=== PATIENT | male | born 1935 | race Asian ===

== ENCOUNTER 2016-10-31 09:20 | Outpatient (CLI) | payer MEDICARE, OTHER | END 2016-10-31 09:21 | disposition home or self-care (01) | DX: E11.9 Type 2 diabetes mellitus without complications (principal); R01.1 Cardiac murmur, unspecified; N18.9 Chronic kidney disease, unspecified; I12.9 Hypertensive chronic kidney disease with stage 1 through stage 4 chronic kidney disease, or unspecified chronic kidney disease ==

== ENCOUNTER 2016-11-04 12:09 | Outpatient (CLI) | payer MEDICARE, OTHER | END 2016-11-04 12:10 | disposition home or self-care (01) | DX: R01.1 Cardiac murmur, unspecified (principal) ==

== ENCOUNTER 2017-02-08 09:20 | Outpatient (CLI) | payer MEDICARE, OTHER ==
[2017-02-08 14:33] LABS: HEMOGLOBIN A1C 0.56 g/dL
[2017-02-08 14:36] LABS: ALBUMIN/GLOBULIN RATIO 1.2 (1.0-2.2); BILIRUBIN,TOTAL 0.5 mg/dL (0.2-1.0); BUN - BLOOD UREA NITROGEN 25 mg/dL (6-20); CALCIUM 8.9 mg/dL (8.5-10.3); CARBON DIOXIDE - CO2 25 mmol/L (21-32); CHLORIDE 102 mmol/L (101-111); CHOL/HDL RATIO 2.4 (<5.0); CHOLESTEROL 240 mg/dL; CREATININE 1.4 mg/dL (0.6-1.2); GFR - MDRD 49 (>89); GLUCOSE 110 mg/dL (70-100); HDL CHOLESTEROL 100 mg/dL; LDL/HDL RATIO 1.2 (<3.6); POTASSIUM 4.4 mmol/L (3.5-5.0); SODIUM 137 mmol/L (135-145); TRIGLYCERIDES 94 mg/dL; VLDL CHOLESTEROL 19 mg/dL
[2017-02-19 11:16] LABS: MISC SENDOUT TEST NAME LAB678 DRUG & ALCOHO
[2017-02-19 11:17] LABS: MISC TEST RESULT SEE SEPARATE REPORT
== END 2017-02-08 09:21 | disposition home or self-care (01) ==
LOC: LAB.WCP 09:20
PROVIDERS: ATTEND Family Medicine
DX: I12.9 Hypertensive chronic kidney disease with stage 1 through stage 4 chronic kidney disease, or unspecified chronic kidney disease (principal); N18.9 Chronic kidney disease, unspecified; E11.9 Type 2 diabetes mellitus without complications; E78.5 Hyperlipidemia, unspecified; F10.20 Alcohol dependence, uncomplicated; D64.9 Anemia, unspecified
CPT/HCPCS: 36415; 80053; 80061; 80307; 81599; 82607; 83036

== ENCOUNTER 2017-10-01 08:15 | Outpatient (CLI) | payer MEDICARE, OTHER ==
[2017-10-01 13:02] LABS: ALBUMIN/GLOBULIN RATIO 1.2 (1.0-2.2); BILIRUBIN,TOTAL 0.4 mg/dL (0.2-1.0); BUN - BLOOD UREA NITROGEN 30 mg/dL (6-20); CALCIUM 8.9 mg/dL (8.5-10.3); CARBON DIOXIDE - CO2 23 mmol/L (21-32); CHLORIDE 103 mmol/L (101-111); CHOL/HDL RATIO 3.2 (<5.0); CHOLESTEROL 248 mg/dL; CREATININE 1.8 mg/dL (0.6-1.2); GFR - MDRD 36 (>89); GLUCOSE 96 mg/dL (70-100); HDL CHOLESTEROL 77 mg/dL; LDL/HDL RATIO 1.7 (<3.6); POTASSIUM 4.4 mmol/L (3.5-5.0); SODIUM 135 mmol/L (135-145); TRIGLYCERIDES 215 mg/dL; VLDL CHOLESTEROL 43 mg/dL
[2017-10-01 13:09] LABS: HEMOGLOBIN A1C 0.52 g/dL
== END 2017-10-01 08:16 | disposition home or self-care (01) ==
LOC: LAB.WCP 08:15
PROVIDERS: ATTEND Family Medicine
DX: E11.9 Type 2 diabetes mellitus without complications (principal); C61 Malignant neoplasm of prostate; E78.5 Hyperlipidemia, unspecified; I10 Essential (primary) hypertension; F10.20 Alcohol dependence, uncomplicated; N18.9 Chronic kidney disease, unspecified
CPT/HCPCS: 36415; 80053; 80061; 83036; 84153

== ENCOUNTER 2017-11-02 08:00 | Outpatient (CLI) | payer MEDICARE, OTHER ==
[2017-11-02 12:57] LABS: CALCIUM 8.8 mg/dL (8.5-10.3); CREATININE 1.5 mg/dL (0.6-1.2)
== END 2017-11-02 08:01 | disposition home or self-care (01) ==
LOC: LAB.WCP 08:00
PROVIDERS: ATTEND Family Medicine
DX: E11.9 Type 2 diabetes mellitus without complications (principal); N18.9 Chronic kidney disease, unspecified; E78.5 Hyperlipidemia, unspecified; I12.9 Hypertensive chronic kidney disease with stage 1 through stage 4 chronic kidney disease, or unspecified chronic kidney disease
CPT/HCPCS: 36415; 80048

== ENCOUNTER 2018-01-01 09:20 | Outpatient (CLI) | payer MEDICARE, OTHER ==
[2018-01-01 12:55] LABS: CALCIUM 9.6 mg/dL (8.5-10.3); CREATININE 1.8 mg/dL (0.6-1.2); URIC ACID 5.6 mg/dL (2.6-7.2)
[2018-01-01 13:01] LABS: HEMOGLOBIN A1C 0.53 g/dL; HEMOGLOBIN A1C % 5.6 % (4.6-6.2)
== END 2018-01-01 09:21 | disposition home or self-care (01) ==
LOC: LAB.WCP 09:20
PROVIDERS: ATTEND Family Medicine
DX: E11.22 Type 2 diabetes mellitus with diabetic chronic kidney disease (principal); I12.9 Hypertensive chronic kidney disease with stage 1 through stage 4 chronic kidney disease, or unspecified chronic kidney disease; N18.9 Chronic kidney disease, unspecified; M10.9 Gout, unspecified
CPT/HCPCS: 36415; 80048; 83036; 84550

== ENCOUNTER 2018-04-03 08:00 | Outpatient (CLI) | payer MEDICARE, OTHER ==
[2018-04-03 12:33] LABS: BASOPHILS # (AUTO) 0.1 10^3/uL (0.0-0.1); EOSINOPHILS % (AUTO) 14.7 %; HGB - HEMOGLOBIN 12.5 g/dL (14.0-18.0); LYMPHOCYTES % (AUTO) 30.8 %; MEAN CORPUSCULAR HEMOGLOBIN 35.3 pg (27.0-31.0); MEAN CORPUSCULAR VOLUME 103.9 fL (80.0-94.0); MEAN PLATELET VOLUME 8.3 fL (7.4-11.4); MONOCYTES # (AUTO) 0.5 10^3/uL (0.0-1.0); MONOCYTES % (AUTO) 7.5 %; PLT - PLATELET COUNT 240 10^3/uL (130-450); RED BLOOD COUNT 3.55 10^6/uL (4.70-6.10); WHITE BLOOD COUNT 6.5 x10^3/uL (4.8-10.8)
[2018-04-03 12:50] LABS: ALBUMIN/GLOBULIN RATIO 1.2 (1.0-2.2); ALKALINE PHOSPHATASE 64 IU/L (42-121); ALT ALANINE AMINOTRANSFERASE 12 IU/L (10-60); AST ASPARTATE AMINOTRANSFERASE 22 IU/L (10-42); BILIRUBIN,TOTAL 0.6 mg/dL (0.2-1.0); BUN - BLOOD UREA NITROGEN 42 mg/dL (6-20); CALCIUM 8.8 mg/dL (8.5-10.3); CARBON DIOXIDE - CO2 25 mmol/L (21-32); CHLORIDE 104 mmol/L (101-111); CHOL/HDL RATIO 2.6 (<5.0); CHOLESTEROL 225 mg/dL; CREATININE 1.8 mg/dL (0.6-1.2); GFR - MDRD 36 (>89); GLUCOSE 93 mg/dL (70-100); HDL CHOLESTEROL 88 mg/dL; LDL CHOLESTEROL,CALCULATED 112 mg/dL; LDL/HDL RATIO 1.3 (<3.6); SODIUM 136 mmol/L (135-145); TOTAL PROTEIN 7.3 g/dL (6.7-8.2); VLDL CHOLESTEROL 25 mg/dL
[2018-04-03 12:53] LABS: HB2 TOTAL 13.7 g/dL; HEMOGLOBIN A1C 0.5 g/dL; HEMOGLOBIN A1C % 5.5 % (4.6-6.2)
[2018-04-03 13:12] LABS: DIFFERENTIAL COMMENT MANUAL=AUTO DIFF
[2018-04-03 13:14] LABS: PLATELET ESTIMATE, MANUAL NORMAL (130-450,000) (NORMAL); RBC MORPHOLOGY (MULTIPLE) NORMAL APPEARANCE (NORMAL)
== END 2018-04-03 08:01 | disposition home or self-care (01) ==
LOC: LAB.WCP 08:00
PROVIDERS: ATTEND Family Medicine
DX: D64.9 Anemia, unspecified (principal); E11.9 Type 2 diabetes mellitus without complications; N18.9 Chronic kidney disease, unspecified; E78.5 Hyperlipidemia, unspecified; I12.9 Hypertensive chronic kidney disease with stage 1 through stage 4 chronic kidney disease, or unspecified chronic kidney disease
CPT/HCPCS: 36415; 80053; 80061; 82043; 83036; 83721; 85025

== ENCOUNTER 2018-12-02 08:28 | Outpatient (CLI) | payer MEDICARE, OTHER ==
[2018-12-02 12:17] LABS: BASOPHILS # (AUTO) 0.1 10^3/uL (0.0-0.1); BASOPHILS % (AUTO) 1.1 %; EOSINOPHILS # (AUTO) 0.8 10^3/uL (0.0-0.7); EOSINOPHILS % (AUTO) 13.3 %; HGB - HEMOGLOBIN 12.5 g/dL (14.0-18.0); LYMPHOCYTES # (AUTO) 1.9 10^3/uL (1.5-3.5); MEAN CORPUSCULAR HEMOGLOBIN 34.3 pg (27.0-31.0); MEAN CORPUSCULAR HGB CONC 34.3 g/dL (32.0-36.0); MEAN CORPUSCULAR VOLUME 100.2 fL (80.0-94.0); MEAN PLATELET VOLUME 8.2 fL (7.4-11.4); MONOCYTES # (AUTO) 0.5 10^3/uL (0.0-1.0); MONOCYTES % (AUTO) 8.1 %; NEUTROPHILS # (AUTO) 2.7 10^3/uL (1.5-6.6); NEUTROPHILS % (AUTO) 45.5 %; PLT - PLATELET COUNT 279 10^3/uL (130-450); RED BLOOD COUNT 3.65 10^6/uL (4.70-6.10); RED CELL DISTRIBUTION WIDTH 14.3 % (12.0-15.0); WHITE BLOOD COUNT 5.9 x10^3/uL (4.8-10.8)
[2018-12-02 13:08] LABS: ALBUMIN 4.1 g/dL (3.2-5.5); ALBUMIN/GLOBULIN RATIO 1.2 (1.0-2.2); ALKALINE PHOSPHATASE 57 IU/L (42-121); ALT ALANINE AMINOTRANSFERASE 14 IU/L (10-60); AST ASPARTATE AMINOTRANSFERASE 24 IU/L (10-42); BILIRUBIN,TOTAL 0.7 mg/dL (0.2-1.0); BUN - BLOOD UREA NITROGEN 26 mg/dL (6-20); CALCIUM 9.2 mg/dL (8.5-10.3); CARBON DIOXIDE - CO2 25 mmol/L (21-32); CHLORIDE 103 mmol/L (101-111); CHOL/HDL RATIO 2.3 (<5.0); CHOLESTEROL 265 mg/dL; CREATININE 1.4 mg/dL (0.6-1.2); GFR - MDRD 49 (>89); GLUCOSE 114 mg/dL (70-100); HDL CHOLESTEROL 114 mg/dL; LDL CHOLESTEROL,CALCULATED 125 mg/dL; LDL/HDL RATIO 1.1 (<3.6); SODIUM 137 mmol/L (135-145); TOTAL PROTEIN 7.5 g/dL (6.7-8.2); URIC ACID 7.5 mg/dL (2.6-7.2); VLDL CHOLESTEROL 26 mg/dL
[2018-12-02 13:21] LABS: HB2 TOTAL 13.3 g/dL; HEMOGLOBIN A1C 0.48 g/dL; HEMOGLOBIN A1C % 5.5 % (4.6-6.2)
== END 2018-12-02 08:29 | disposition home or self-care (01) ==
LOC: LAB.WCP 08:28
PROVIDERS: ATTEND Family Medicine
DX: D64.9 Anemia, unspecified (principal); E11.9 Type 2 diabetes mellitus without complications; N18.9 Chronic kidney disease, unspecified; E78.5 Hyperlipidemia, unspecified; I12.9 Hypertensive chronic kidney disease with stage 1 through stage 4 chronic kidney disease, or unspecified chronic kidney disease
CPT/HCPCS: 36415; 80053; 80061; 83036; 83721; 84550; 85025

== ENCOUNTER 2019-07-29 08:00 | Outpatient (CLI) | payer MEDICARE, OTHER ==
[2019-07-29 13:15] LABS: BASOPHILS # (AUTO) 0.1 10^3/uL (0.0-0.1); BASOPHILS % (AUTO) 1.4 %; EOSINOPHILS # (AUTO) 1.2 10^3/uL (0.0-0.7); EOSINOPHILS % (AUTO) 17.3 %; HGB - HEMOGLOBIN 12.9 g/dL (14.0-18.0); LYMPHOCYTES # (AUTO) 2.9 10^3/uL (1.5-3.5); LYMPHOCYTES % (AUTO) 40.4 %; MEAN CORPUSCULAR HEMOGLOBIN 33.9 pg (27.0-31.0); MEAN CORPUSCULAR VOLUME 102.9 fL (80.0-94.0); MONOCYTES # (AUTO) 0.5 10^3/uL (0.0-1.0); MONOCYTES % (AUTO) 7.1 %; NEUTROPHILS # (AUTO) 2.4 10^3/uL (1.5-6.6); NEUTROPHILS % (AUTO) 33.5 %; PLT - PLATELET COUNT 268 10^3/uL (130-450); RED CELL DISTRIBUTION WIDTH 12.9 % (12.0-15.0); WHITE BLOOD COUNT 7.2 x10^3/uL (4.8-10.8)
[2019-07-29 13:29] LABS: ALBUMIN 4.2 g/dL (3.2-5.5); ALBUMIN/GLOBULIN RATIO 1.1 (1.0-2.2); CALCIUM 9.1 mg/dL (8.5-10.3); CREATININE 1.5 mg/dL (0.6-1.2); TOTAL PROTEIN 7.9 g/dL (6.7-8.2)
[2019-07-29 13:58] LABS: CHOL/HDL RATIO 2.8 (<5.0); CHOLESTEROL 256 mg/dL; HDL CHOLESTEROL 90 mg/dL; LDL CHOLESTEROL,CALCULATED 102 mg/dL; LDL/HDL RATIO 1.1 (<3.6); VLDL CHOLESTEROL 64 mg/dL
[2019-07-29 13:59] LABS: PLATELET ESTIMATE, MANUAL NORMAL (130-450,000) (NORMAL); PLATELET MORPHOLOGY NORMAL APPEARANCE (NORMAL); RBC MORPHOLOGY (MULTIPLE) NORMAL APPEARANCE (NORMAL)
[2019-07-29 14:11] LABS: HB2 TOTAL 13.4 g/dL; HEMOGLOBIN A1C 0.53 g/dL; HEMOGLOBIN A1C % 5.8 % (4.6-6.2)
== END 2019-07-29 23:59 | disposition home or self-care (01) ==
LOC: LAB.WCP 08:00
PROVIDERS: ATTEND Family Medicine
DX: E11.9 Type 2 diabetes mellitus without complications (principal); E78.5 Hyperlipidemia, unspecified; I10 Essential (primary) hypertension; F17.210 Nicotine dependence, cigarettes, uncomplicated; D64.9 Anemia, unspecified; R94.5 Abnormal results of liver function studies; I65.23 Occlusion and stenosis of bilateral carotid arteries; M10.9 Gout, unspecified
CPT/HCPCS: 36415; 80053; 80061; 83036; 83721; 84443; 84550; 85025

== ENCOUNTER 2019-07-30 08:00 | Outpatient (CLI) | payer MEDICARE, OTHER | END 2019-07-30 23:59 | disposition home or self-care (01) | LOC: LAB.R 08:00 | PROVIDERS: ATTEND Physician Assistant | DX: M10.9 Gout, unspecified (principal) | CPT/HCPCS: 84550 ==

== ENCOUNTER 2019-08-14 08:35 | Outpatient (CLI) | payer MEDICARE, OTHER | END 2019-08-14 08:36 | disposition home or self-care (01) | LOC: DI 08:35 | PROVIDERS: ATTEND Physician Assistant | DX: I35.1 Nonrheumatic aortic (valve) insufficiency (principal); I51.9 Heart disease, unspecified | CPT/HCPCS: 93306 ==

== ENCOUNTER 2019-08-26 07:46 | Outpatient (CLI) | payer MEDICARE, OTHER ==
--- NOTE | 2019-08-26 11:15 | CT Report ---
Reason: SMOKER Procedure Date: 08/26/2019 Accession Number: [id number] / [id number] Procedure: CT - CHEST WO CPT Code: Final Report FULL RESULT: EXAM: CT CHEST EXAM DATE: 08/26/2019 08:02 AM. CLINICAL HISTORY: Smoker. COMPARISONS: None. TECHNIQUE: Routine helical CT imaging was performed through the chest. IV contrast: None. Reconstructions: Coronal and sagittal. In accordance with CT protocol optimization, one or more of the following dose reduction techniques were utilized for this exam: automated exposure control, adjustment of mA and/or KV based on patient size, or use of iterative reconstructive technique. FINDINGS: Lungs/Pleura: Nodules: In the right upper lobe, there is at least 20, sub-4 mm mixed semisolid and nonsolid pulmonary nodules, and at least 10 similar morphology nodules in the left upper lobe largely sparing the lingula. No dominant solid pulmonary nodule noted. Bilateral lower lobes are clear. Mild cylindrical bronchiectasis. Mild paraseptal emphysema of the apices. No confluent airspace opacity or bronchial thickening. Several bandlike foci of extra pleural thickening right anterior pleura. Pulmonary vasculature is normal. No pericardial or pleural effusion. No pneumothorax. Mediastinum: No adenopathy or masses. The heart size is normal. Atherosclerotic ectasia and tortuosity of the thoracic aorta. Significant coronary artery calcium of left coronary branches. Bones: Unremarkable. Visualized Abdomen: Unremarkable. Other: None. IMPRESSION: 1. Multiple bilateral similar-appearing sub-4 mm pulmonary nodules as detailed involving the upper lobes. Lung RADS category 2. Benign appearance. Recommend low dose screening CT in 12 months. RADIA
== END 2019-08-26 07:47 | disposition home or self-care (01) ==
LOC: DI 07:46
PROVIDERS: ATTEND Physician Assistant
DX: R91.8 Other nonspecific abnormal finding of lung field (principal); F17.210 Nicotine dependence, cigarettes, uncomplicated
CPT/HCPCS: 71250

== ENCOUNTER → 2020-03-29 | Outpatient (CLI) | payer MEDICARE, OTHER ==
[2020-03-29 12:31] LABS: BASOPHILS # (AUTO) 0.1 10^3/uL (0.0-0.1); BASOPHILS % (AUTO) 1.4 %; EOSINOPHILS # (AUTO) 1.1 10^3/uL (0.0-0.7); EOSINOPHILS % (AUTO) 19.8 %; HGB - HEMOGLOBIN 11.8 g/dL (14.0-18.0); MEAN CORPUSCULAR HEMOGLOBIN 31.9 pg (27.0-31.0); MEAN CORPUSCULAR HGB CONC 31.6 g/dL (32.0-36.0); MEAN CORPUSCULAR VOLUME 101.1 fL (80.0-94.0); MEAN PLATELET VOLUME 9.8 fL (7.4-11.4); MONOCYTES # (AUTO) 0.5 10^3/uL (0.0-1.0); MONOCYTES % (AUTO) 8.7 %; NEUTROPHILS # (AUTO) 1.9 10^3/uL (1.5-6.6); NEUTROPHILS % (AUTO) 33.9 %; PLT - PLATELET COUNT 296 10^3/uL (130-450); RED CELL DISTRIBUTION WIDTH 13.5 % (12.0-15.0); WHITE BLOOD COUNT 5.6 x10^3/uL (4.8-10.8)
[2020-03-29 13:02] LABS: ALBUMIN 4.3 g/dL (3.2-5.5); ALBUMIN/GLOBULIN RATIO 1.3 (1.0-2.2); ALKALINE PHOSPHATASE 81 IU/L (42-121); ALT ALANINE AMINOTRANSFERASE 12 IU/L (10-60); AST ASPARTATE AMINOTRANSFERASE 17 IU/L (10-42); BILIRUBIN,TOTAL 0.6 mg/dL (0.2-1.0); BUN - BLOOD UREA NITROGEN 25 mg/dL (6-20); CARBON DIOXIDE - CO2 26 mmol/L (21-32); CHLORIDE 108 mmol/L (101-111); CHOLESTEROL 245 mg/dL; CREATININE 1.5 mg/dL (0.6-1.2); GLUCOSE 94 mg/dL (70-100); HDL CHOLESTEROL 68 mg/dL; LDL CHOLESTEROL,CALCULATED 147 mg/dL; SODIUM 140 mmol/L (135-145); TOTAL PROTEIN 7.5 g/dL (6.7-8.2); URIC ACID 7.8 mg/dL (2.6-7.2); VLDL CHOLESTEROL 30 mg/dL
[2020-03-29 13:03] LABS: CHOL/HDL RATIO 3.6 (<5.0); LDL/HDL RATIO 2.2 (<3.6)
[2020-03-29 13:12] LABS: CREATININE,URINE 91.3 mg/dL; HB2 TOTAL 12.5 g/dL; HEMOGLOBIN A1C 0.52 g/dL; MICROALBUMIN,URINE 11.5 mg/dL (0-300.0)
== END ==
LOC: LAB.WCP 09:26
PROVIDERS: ATTEND Family Medicine
DX: E11.9 Type 2 diabetes mellitus without complications (principal); C61 Malignant neoplasm of prostate; I35.1 Nonrheumatic aortic (valve) insufficiency; I65.29 Occlusion and stenosis of unspecified carotid artery; F17.210 Nicotine dependence, cigarettes, uncomplicated
CPT/HCPCS: 36415; 80053; 80061; 82043; 82570; 83036; 83721; 84153; 84443; 84550; 85025

== ENCOUNTER 2020-05-06 08:11 | Outpatient (CLI) | payer MEDICARE, OTHER ==
--- NOTE | 2020-05-06 09:16 | SLEEP CARE CONSULTATION ---
Information from patient questionnaire entered by Mary Arana. I have reviewed and concur with the information entered by Mary Arana. This document represents the service I personally performed and the decisions made by me, Candy Snow ARNP. History of Present Illness Service Date and Time: 05/06/2020 0811 Reason for Visit: New patient Chief Complaint: reports: Insomnia, Snoring, Excessive daytime sleepiness, Fatigue, Frequent awakenings at night. denies: Observed pauses in breathing Duration of Symptoms: 20 years Usual bedtime: 2300 Time it takes to fall asleep: 1 hour Snores at night: Yes Observed to quit breathing while asleep: No Sleeps alone due to snoring: Yes Number of times waking at night: 2 Reasons for waking at night: reports: Bathroom. denies: Choking, Snoring, Gasping for air, Pain Toss, Turn, or Twitch while sleeping: Yes Recalls having dreams: Yes Usually gets out of bed at: 0500 Feels refreshed in the morning: Yes (most mornings) Morning headache: No Sleepy or fatigued during the day: Yes Ever fallen asleep while driving: No Takes day naps: Yes Dreams during day naps: No Prior sleep studies: No Additional HPI information: Patient's and son complaining about his loud snoring. He was sent here by PCP due to his insomnia, snoring, frequent awakenings and not being able to sleep during the night. - Parasomnia Symptoms Ever been unable to move upon waking from sleep: No Walks in sleep: No Talks in sleep: Yes ( tells him he does this occasionally) Ever acted out dreams in sleep: Yes Ever felt weak in the knees when startled or emotional: No Bothered by creepy, crawly, restless sensations in legs: Yes Problems with memory or concentration: No Subjective Initial [place] Sleepiness Scale score: 16 Past Medical History Past Medical History: reports: Hypertension, Diabetes (borderline), Impotence. denies: Claustrophobia, Congestive Heart Failure, Stroke, Coronary Heart Disease, Arrythmia, Hypothyroidism, Anemia, Anxiety, Asthma, Depression, Mood disorder, GERD Social History The patient's occupation is retired. Patient is and lives in [place]. Have you smoked in the past 12 months: No Cigarettes per day (20/pack): 20 Years of smokin Quit date: 1966 Smoking Pack Years: 60.0 Alcohol use: Yes Alcohol amount and frequency: occasionally Caffeine use: Yes Caffeine amount and frequency: black coffee every morning, 2-3 cups Family History Family history of sleep disordered breathing: Yes Family Hx Sleep Apnea: Mother: Snoring (brothers), Father: Snoring, Sibling: Snoring Allergies and Home Medications Drug allergies reviewed: Yes (codiene, heart racing) Allergy and home medication list: allopurinol colcrys metoprolol tartrate tylenol aspirin latanoprostophthalmic solution simvastatin lisinopril Review of Systems Cardiovascular: reports: high blood pressure. denies: palpitations, chest pain, irregular heart rate or pulse, leg or foot swelling, have to sleep sitting up Respiratory: denies: shortness of breath, wheeze, chronic cough Gastrointestinal: denies: heartburn, difficulty swallowing Urinary: reports: impotence Neurological: denies: headaches, seizure, head trauma, disorientation, gait or balance problems Psychiatric: denies: anxiety, depression, mood disorder Ear/Nose/Throat: reports: wisdom teeth removed. denies: nasal congestion, sinus problems, nose bleeds, dry mouth/throat, injury to nose, tonsillectomy Endocrine: reports: increased urination. denies: thyroid disease, too hot or cold, excessive thirst, increased appetite Musculoskeletal: reports: joint pain, neck pain, back pain, muscle pain or cramping Immunologic: reports: itching, allergies to food or environment (seasonal dry skin) Physical Exam Blood Pressure: 158/88 Cuff size: long Heart Rate: 86 O2 Saturation: 97 Height: 5 ft 4 in Weight: 147 lb 6.4 oz Body Mass Index: 25.2 BMI Classification: Overweight Neck circumference: 14.5 (inches) HEENT: No craniofacial malformation Nostrils: patent to airflow Turbinates: normal Septum: midline Mouth and throat: normal Soft palate: normal Hard palate: normal Uvula: normal Uvula visualization: 50% Mallampati Class II Tongue: normal in size Tonsils: small Chin and jaw: normal size and position Neck: normal w/o lymphadenopathy or thyromegaly Heart: regular rate and rhythm, murmur Lungs: clear bilaterally Impression and Plan 1. Suspected Obstructive Sleep Apnea-Hypopnea Syndrome, as suggested by a history of loud and irregular snoring, insomnia, frequent awakening during the night, and excessive daytime sleepiness. As discussed with the patient, a narrow oropharynx and obesity are common predisposing factors for obstructive sleep apnea-hypopnea syndrome. Patient does have a history of hypertension and borderline diabetes. He is overweight with a BMI of 25.2. He states he feels like he gets restful sleep but then falls asleep often during the day if he is not busy, like when watching TV. His PCP recommended he be evaluated for sleep apnea to determine cause of his symptoms as listed above. 2. Elevated blood pressure reading with a diagnosis of hypertension. His blood pressure was elevated today at 158/88 but he stated that he had not yet taken his blood pressure medications this morning. I recommend proceeding to polysomnography to confirm the diagnosis and to assess severity. I informed the patient of what the sleep studies involve and after some discussion, obtained agreement to proceed. The pathophysiology of obstructive sleep apnea-hypopnea syndrome was discussed with the patient and health risks of cardiovascular and cerebrovascular disease if not treated. AAS brochure for obstructive sleep apnea-hypopnea syndrome given and reviewed. Risks of drowsy driving discussed in detail and patient advised to avoid long distance driving and to [employer] at the first sign of drowsiness. Patient states he is usually alert and not sleepy when driving. Patient agreed to plan. * Schedule polysomnography and return in 1-2 weeks after the study to discuss result and initiate therapy. * Avoid long distance driving or driving when feeling sleepy. * Avoid alcohol, sedative and muscle relaxant around bedtime. * Attempt to lose weight. * Review instructions provided by trained office staff on how to prepare for the sleep study. * Return for follow-up after sleep study completed. Visit Type: In Office Time Spent with Patient (minutes): 35 Provider Statement: I spent 100% of the Face to Face Visit with the patient with greater than 50% spent counseling the patient and coordination of care.
[2020-05-06 09:18] VITALS: BP 158/88
== END 2020-05-06 08:12 | disposition home or self-care (01) ==
LOC: SC 08:11
PROVIDERS: ATTEND Nurse Practitioner Family
DX: G47.10 Hypersomnia, unspecified (principal); G47.8 Other sleep disorders; R06.83 Snoring; G47.00 Insomnia, unspecified; I01.0 Acute rheumatic pericarditis; E66.3 Overweight; Z68.25 Body mass index [BMI] 25.0-25.9, adult
CPT/HCPCS: 99204; G0463; 99212

== ENCOUNTER 2020-05-26 20:26 | Outpatient (CLI) | payer MEDICARE, OTHER | END 2020-05-26 20:27 | disposition home or self-care (01) | LOC: SC 20:26 | PROVIDERS: ATTEND Internal Medicine Pulmonary Disease | DX: G47.33 Obstructive sleep apnea (adult) (pediatric) (principal); G47.63 Sleep related bruxism | CPT/HCPCS: 95810 ==

== ENCOUNTER 2020-06-03 08:32 | Outpatient (CLI) | payer MEDICARE, OTHER ==
--- NOTE | 2020-06-03 09:16 | SLEEP CARE CONSULTATION ---
Information from patient questionnaire entered by Marianela Anthony. I have reviewed and concur with the information entered by Marianela Anthony. This document represents the service I personally performed and the decisions made by , Candy Snow ARNP. History of Present Illness Service Date and Time: 06/03/2020 0832 Initial [place] Sleepiness Scale score: 16 (in 2020) Current [place] Sleepiness Scale score: 18 Additional HPI information: TYLER LOWRY returns for follow up and results of the recently performed polysomnography. Patient was found to have severe obstructive sleep apnea with a elsa oxygen saturation of 81% and some bruxism noted during study. I explained the pathophysiology behind obstructive sleep apnea. We then spent quite a bit of time discussing different treatment options. For mild obstructive sleep apnea, surgery and oral appliance are alternatives to nasal CPAP therapy but in moderate or severe cases, nasal CPAP is the most effective and reliable treatment. After some discussion, the patient opted to go with the nasal CPAP therapy. Nasal autoCPAP set at 4-15 cmH20 will be ordered with rationale explained. A manual titration study will be ordered if unable to find optimal pressure with office adjustments. I explained how CPAP machine works with sample devices [id number] Dreamstation and Unocoin [id number] and what to expect when using the machine. Using CPAP every night in order to get used to it was emphasized. Patient advised to put CPAP mask on before getting into bed so as not to fall asleep without CPAP. To assist acclimation to CPAP use, it could also be used for a short time during day while reading or watching TV. The patient was instructed to call the CPAP supplier to discuss any mechanical problem that may occur. If the mask given is uncomfortable or is difficult to keep on through the night even with adjustment, contact the CPAP supplier as many will replace with another mask style if notified before 30 days. If snoring or perceives is not getting enough air or too much air from the machine, notify this office. AASM patient education PAP tips reviewed and given to patient. Patient counseled not drink alcohol less than 4 hours before bedtime as it can increase snoring and apnea. Patient was cautioned about risks of drowsy driving until sleepiness symptoms resolve. Sleep Study - Results Type of Sleep Study: Polysomnography Polysomnography/Home Sleep Study results: IMPRESSION: The quality of the study is good. The patient had reduced sleep efficiency due to frequent awakenings after the sleep onset. The sleep architecture was abnormal for sleep fragmentation and reduced amount of time spent in REM and slow wave sleep (N3). Respiratory monitoring showed severe obstructive sleep apneahypopnea (AHI = 49.0) associated with frequent arousals, oxyhemoglobin desaturation and mild hypoxia (elsa oxygen saturation of 81%). The respiratory events occurred independently of sleep stage and body position (supine AHI = 54.7; non-supine = 31.35). Snore was moderate to loud in intensity. There was no significant periodic leg movement of sleep. Cardiac rhythm was normal sinus rhythm without significant arrhythmia. No abnormal behavior (parasomnia) observed during the night except for bruxism. Allergies and Home Medications Drug allergies reviewed: Yes (codiene) Home medication list reviewed: Yes (no changes) Review of Systems Review of systems same as previous: Yes (no changes) Physical Exam Heart Rate: 74 O2 Saturation: 98 Height: 5 ft 4 in Weight: 148 lb Body Mass Index: 25.4 BMI Classification: Overweight Impression and Plan 1. Obstructive Sleep Apnea-Hypopnea Syndrome, severe, with lowest oxygen saturation of 81%. Obviously this is the cause of the patients symptoms of unrefreshed sleep, and excessive daytime sleepiness. Positive pressure therapy could benefit pre-diabetes and gout. As mentioned above, the patient will be started on nasal autoCPAP therapy with pressure set at 4-15 cmH2O. A manual titration study will be completed if unable to find optimal treatment pressure with office adjustments. Compliance guidelines also reviewed. A copy of compliance guidelines will be given for reference at check out. Because the apnea is more severe supine, I instructed to avoid sleeping supine using pillow positioning until able to start CPAP use. * Nasal auto CPAP therapy, pressure at 4-15 cm H2O. * Attempt to lose weight. * Avoid alcohol consumption near bedtime. * Avoid supine sleep until using CPAP. * The patient is again cautioned about driving until sleepiness completely resolves. * Return one month after CPAP obtained. I will assess response to therapy and compliance at that time. Visit Type: In Office Time Spent with Patient (minutes): 25 Provider Statement: I spent 100% of the Face to Face Visit with the patient with greater than 50% spent counseling the patient and coordination of care.
== END 2020-06-03 08:33 | disposition home or self-care (01) ==
LOC: SC 08:32
PROVIDERS: ATTEND Nurse Practitioner Family
DX: G47.33 Obstructive sleep apnea (adult) (pediatric) (principal); E66.3 Overweight; Z68.25 Body mass index [BMI] 25.0-25.9, adult
CPT/HCPCS: 99213; G0463; 99212

== ENCOUNTER 2020-10-22 09:32 | Outpatient (CLI) | payer MEDICARE, OTHER ==
--- NOTE | 2020-10-22 10:09 | SLEEP CARE CONSULTATION ---
Information from patient questionnaire entered by Marianela Anthony. I have reviewed and concur with the information entered by Marianela Anthony. This document represents the service I personally performed and the decisions made by , Candy Snow ARNP. History of Present Illness Service Date and Time: 10/22/2020 0932 Previous diagnosis: Severe, Obstructive Sleep Apnea-Hypopnea Syndrome AHI: 49.0 (in 2019) Reason for follow up: first compliance (set up 06/22/20) Equipment type: CPAP Equipment obtained from: [facility] (getting supplies as needed) Mask style: Nasal Backup mask available: No (will keep old mask when replaced) Last cushion change: 1 month Prior sleep studies: Yes Year and Where: 2019 - [facility] Type of Sleep Study: Polysomnography HPI additional information: TYLER LOWRY was diagnosed to have severe, AHI 49.0, obstructive sleep apnea-hypopnea syndrome and returned today for CPAP therapy first compliance follow-up. CPAP Compliance Data - Data Reviewed with Patient Average duration of nightly device use: 6 hr 7 min Compliance rate %: 70 (first 30)(63 last 30) Current pressure setting (cmH2O): 4-15 (median 6.4 cmH2O, average 10.5 cmH2O and max 11.6 cmH2O) Humidity settin Average residual AHI: 1.5 (first 30)(2.0 last 30) Central apnea: 0.4 Obstructive apnea: 1.0 Subjective Missed days of use due to: reports: family emergency Patient concerns: reports: mask leak noise (improved with new smaller mask), dry mouth, nose, throat, other (snore while using device). denies: aerophagia, mask discomfort, air blowing in eyes, condensation in mask/hose, nasal congestion, epistaxis Observed to snore while using device: Yes Current pressure setting perceived as: comfortable On therapy, patient: reports: sleeping better, awakening more refreshed, being more awake and alert during the day, more rested overall. denies: drowsiness while driving Initial [place] Sleepiness Scale score: 16 (in 2019) Current [place] Sleepiness Scale score: 19 Allergies and Home Medications Drug allergies reviewed: Yes (codeine) Home medication list reviewed: Yes (increased his BP medication) Review of Systems Review of systems same as previous: Yes (no changes) Physical Exam Heart Rate: 78 O2 Saturation: 100 Height: 5 ft 4 in Weight: 150 lb Weight change since last visit: 2 Body Mass Index: 25.7 BMI Classification: Overweight Impression and Plan 1. Obstructive Sleep Apnea-Hypopnea Syndrome, severe, with fair treatment com pliance and good apnea control. On CPAP therapy, the patient has better sleep quality and is more rested overall. To resolve snore, the CPAP pressure will be changed to 6-12 cmH20. Patient advised to contact this office if pressure change uncomfortable or if pressure change does not resolve snore. He has had some mouth dryness and has been drinking water when up at night to moisten mouth. Oral dryness can be reduced by adjusting humidity setting higher or heated hose lower or by adjusting both settings. Verbal instructions given on how to change humidity and heated hose settings with rationale explaining why to change. Patient advised that chronic oral dryness can affect dental health. Patient's apnea severity and rationale for treatment to reduce apnea, improve sleep quality and reduce cardiovascular and cerebrovascular events was reviewed. I also reviewed the benefit of consistent device use of CPAP for his pre-diabetes and gout. * Change auto CPAP pressure to 6-12 cmH2O * Notify me if snoring with mask or feeling that the pressure is too much or too little * Attempt to lose weight * Call this office if any problems using CPAP * Return for follow up in 1-2 months, or sooner if concerns arise Counseling Topics: Spare mask, Weight loss health impact Visit Type: In Office Time Spent with Patient (minutes): 27 Provider Statement: I spent 100% of the Face to Face Visit with the patient with greater than 50% spent counseling the patient and coordination of care.
--- OUTSIDE RECORDS SUMMARY | 2020-10-27 01:32 | EXTERNAL MEDICAL SUMMARY RPT | Continuity of Care Document ---
:1935 Demographics Phone Unavailable Preferred Language Telugu Marital Status Unknown Moravian Affiliation Unknown Race Unknown Ethnic Group Unknown Author Organization [place] Address [address] [phone] Phone Care Team Providers Name Role Phone Langrock Unavailable Unavailable PA-C Unavailable Unavailable Holiday Unavailable Unavailable MD Unavailable Unavailable Leonidas Unavailable Unavailable Problems date description facility 2013-05-21 13:28 DIAB BOBBY WO COMPL, TYPE II OR [facility] UNSPEC TYPE, NOT UNCNTRLD 2013-05-21 13:28 HYPERLIPIDEMIA NEC/NOS [facility] 2013-05-21 13:28 ABN LIVER FUNCTION STUDY [facility] 2013-06-30 08:00 HYPERLIPIDEMIA NEC/NOS [facility] 2013-06-30 08:00 ABN LIVER FUNCTION STUDY [facility] 2013-06-30 08:00 OTH MED,LT,CURRENT USE [facility] 2013-08-21 09:30 HYPERLIPIDEMIA NEC/NOS [facility] 2013-08-21 09:30 OTH MED,LT,CURRENT USE [facility] 2014-04-23 09:41 DIAB BOBBY WO COMPL, TYPE II OR [facility] UNSPEC TYPE, NOT UNCNTRLD 2014-04-23 09:41 HYPERLIPIDEMIA NEC/NOS [facility] 2014-04-23 09:41 BENIGN HYPERTENSION [facility] 2015-03-17 11:30 CELLULITIS, TOE NOS [facility] 2015-08-23 12:24 TYPE 2 DIABETES MELLITUS [facility] WITHOUT COMPLICATIONS 2015-08-23 12:24 HYPERLIPIDEMIA, UNSPECIFIED [facility] 2015-08-23 12:24 ESSENTIAL (PRIMARY) [facility] HYPERTENSION 2015-08-23 12:24 GOUT, UNSPECIFIED [facility] 2015-10-27 08:00 CELLULITIS OF LEFT TOE [facility] 2015-11-08 09:00 CELLULITIS OF UNSPECIFIED TOE [facility] 2015-11-08 09:00 GOUT, UNSPECIFIED [facility] 2016-02-01 07:38 GOUT, UNSPECIFIED 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-4/UNSP [facility] 2016-07-07 08:00 CHRONIC KIDNEY DISEASE, [facility] UNSPECIFIED 2016-10-31 09:20 TYPE 2 DIABETES MELLITUS [facility] WITHOUT COMPLICATIONS 2016-10-31 09:20 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 2016-10-31 09:20 CHRONIC KIDNEY DISEASE, [facility] UNSPECIFIED 2016-10-31 09:20 CARDIAC MURMUR, UNSPECIFIED [facility] 2016-11-04 12:09 CARDIAC MURMUR, UNSPECIFIED [facility] 2017-02-08 09:20 ANEMIA, UNSPECIFIED [facility] 2017-02-08 09:20 TYPE 2 DIABETES MELLITUS [facility] WITHOUT COMPLICATIONS 2017-02-08 09:20 HYPERLIPIDEMIA, UNSPECIFIED [facility] 2017-02-08 09:20 ALCOHOL DEPENDENCE, [facility] UNCOMPLICATED 2017-02-08 09:20 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 W STG 1-4/UNSP [facility] 2017-02-08 09:20 CHRONIC KIDNEY DISEASE, [facility] UNSPECIFIED 2017-10-01 08:15 MALIGNANT NEOPLASM OF PROSTATE [facility] 2017-10-01 08:15 TYPE 2 DIABETES MELLITUS [facility] WITHOUT COMPLICATIONS 2017-10-01 08:15 HYPERLIPIDEMIA, UNSPECIFIED [facility] 2017-10-01 08:15 ALCOHOL DEPENDENCE, [facility] UNCOMPLICATED 2017-10-01 08:15 ESSENTIAL (PRIMARY) [facility] HYPERTENSION 2017-10-01 08:15 CHRONIC KIDNEY DISEASE, [facility] UNSPECIFIED 2017-11-02 08:00 TYPE 2 DIABETES MELLITUS [facility] WITHOUT COMPLICATIONS 2017-11-02 08:00 HYPERLIPIDEMIA, UNSPECIFIED [facility] 2017-11-02 08:00 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 W STG 1-4/UNSP [facility] 2018-04-03 08:00 CHRONIC KIDNEY DISEASE, [facility] UNSPECIFIED 2018-12-02 08:28 ANEMIA, UNSPECIFIED [facility] 2018-12-02 08:28 TYPE 2 DIABETES MELLITUS [facility] WITHOUT COMPLICATIONS 2018-12-02 08:28 HYPERLIPIDEMIA, UNSPECIFIED [facility] 2018-12-02 08:28 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 W STG 1-4/UNSP [facility] 2018-12-02 08:28 CHRONIC KIDNEY DISEASE, [facility] UNSPECIFIED 2019-07-29 08:00 ANEMIA, UNSPECIFIED [facility] 2019-07-29 08:00 TYPE 2 DIABETES MELLITUS [facility] WITHOUT COMPLICATIONS 2019-07-29 08:00 HYPERLIPIDEMIA, UNSPECIFIED [facility] 2019-07-29 08:00 NICOTINE DEPENDENCE, [facility] CIGARETTES, UNCOMPLICATED 2019-07-29 08:00 ESSENTIAL (PRIMARY) [facility] HYPERTENSION 2019-07-29 08:00 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 2019-08-14 08:35 HEART DISEASE, [facility] 2019-08-26 07:46 NICOTINE DEPENDENCE, [facility] CIGARETTES, UNCOMPLICATED 2019-08-26 07:46 OTHER NONSPECIFIC ABNORMAL [facility] FINDING OF LUNG FIELD 2020-03-29 09:26 MALIGNANT NEOPLASM OF PROSTATE [facility] 2020-03-29 09:26 TYPE 2 DIABETES MELLITUS [facility] WITHOUT COMPLICATIONS 2020-03-29 09:26 NICOTINE DEPENDENCE, [facility] CIGARETTES, UNCOMPLICATED 2020-03-29 09:26 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 2020-05-06 08:11 INSOMNIA, UNSPECIFIED [facility] 2020-05-06 08:11 HYPERSOMNIA, UNSPECIFIED [facility] 2020-05-06 08:11 OTHER SLEEP DISORDERS [facility] 2020-05-06 08:11 ACUTE RHEUMATIC PERICARDITIS [facility] 2020-05-06 08:[address] [facility] 2020-05-06 08:11 BODY MASS INDEX (BMI) [facility] 25.0-25.9, ADULT 2020-05-26 20:26 OBSTRUCTIVE SLEEP APNEA (ADULT) [facility] (PEDIATRIC) 2020-05-26 20:26 SLEEP RELATED BRUXISM [facility] [place] 2020-06-03 08:[address] [facility] 2020-06-03 08:32 OBSTRUCTIVE SLEEP APNEA (ADULT) [facility] (PEDIATRIC) 2020-06-03 08:32 BODY MASS INDEX (BMI) [facility] 25.0-25.9, ADULT 2020-09-14 00:00:00 TSH WITH REFLEX TO FT4 [facility] [place] [facility] 2020-09-14 00:00:00 [facility] 2020-09-14 00:00:00 COMPREHENSIVE METABOLIC PANEL [facility] [place] [facility] 2020-09-29 00:00:00 Obstructive sleep apnea (adult) [facility] [place] [facility] 2020-09-29 00:00:00 Obstructive sleep apnea of [facility] adult [place] [facility] 2020-09-29 00:00:00 Health-related behavior [facility] [place] [facility] 2020-09-29 00:00:00 Tobacco use and exposure [facility] [place] [facility] 2020-09-29 00:00:00 Exercise [facility] 2020-09-29 00:00:00 Details of drug misuse behavior [facility] [place] [facility] 2020-09-29 00:00:00 Current every day smoker [facility] [place] [facility] 2020-09-29 00:00:00 Tobacco smoking status NHIS [facility] [place] [facility] Allergies date description facility MORPHINE [facility] Medications date description facility 2020-09-29 00:00:00 null [facility] [place] [facility] 2020-09-29 00:00:00 null [facility] [place] [facility] 2020-09-29 00:00:00 [facility] [place] [facility] 2020-09-29 00:00:00 [facility] [place] [facility] Social History date description facility 2020-09-29 00:00:00 Current [facility] sm[facility] [place] [facility] Social History date description facility 2020-09-29 00:00:00 Current every day sm[facility] [place] [facility] date description facility [phone]
== END 2020-10-22 09:33 | disposition home or self-care (01) ==
LOC: SC 09:32
PROVIDERS: ATTEND Nurse Practitioner Family
DX: G47.33 Obstructive sleep apnea (adult) (pediatric) (principal); E66.3 Overweight; Z68.25 Body mass index [BMI] 25.0-25.9, adult
CPT/HCPCS: 99213; G0463; 99212

== ENCOUNTER 2020-11-06 10:01 | Outpatient (CLI) | payer MEDICARE, OTHER ==
[2020-11-06 14:28] LABS: BASOPHILS # (AUTO) 0.1 10^3/uL (0.0-0.1); BASOPHILS % (AUTO) 1.1 %; EOSINOPHILS % (AUTO) 16.2 %; HGB - HEMOGLOBIN 12.6 g/dL (14.0-18.0); LYMPHOCYTES % (AUTO) 33.4 %; MEAN CORPUSCULAR HEMOGLOBIN 33.2 pg (27.0-31.0); MEAN CORPUSCULAR HGB CONC 32.2 g/dL (32.0-36.0); MEAN CORPUSCULAR VOLUME 102.9 fL (80.0-94.0); MONOCYTES # (AUTO) 0.5 10^3/uL (0.0-1.0); MONOCYTES % (AUTO) 8.2 %; NEUTROPHILS # (AUTO) 2.5 10^3/uL (1.5-6.6); NEUTROPHILS % (AUTO) 40.8 %; PLT - PLATELET COUNT 241 10^3/uL (130-450); RED CELL DISTRIBUTION WIDTH 13.4 % (12.0-15.0); WHITE BLOOD COUNT 6.1 x10^3/uL (4.8-10.8)
[2020-11-06 14:36] LABS: ALBUMIN 4.5 g/dL (3.2-5.5); ALBUMIN/GLOBULIN RATIO 1.4 (1.0-2.2); BILIRUBIN,TOTAL 0.5 mg/dL (0.2-1.0); CALCIUM 9.3 mg/dL (8.5-10.3); CREATININE 1.5 mg/dL (0.6-1.2); TOTAL PROTEIN 7.8 g/dL (6.7-8.2)
[2020-11-06 14:37] LABS: CREATININE,URINE 76.2 mg/dL; MICROALBUMIN,URINE 26.9 mg/dL (0-300.0)
== END 2020-11-06 10:02 | disposition home or self-care (01) ==
LOC: LAB.N 10:01
PROVIDERS: ATTEND Physician Assistant
DX: I35.1 Nonrheumatic aortic (valve) insufficiency (principal); I10 Essential (primary) hypertension
CPT/HCPCS: 36415; 80053; 82043; 82088; 82570; 84244; 85025

== ENCOUNTER 2020-11-19 07:13 | Outpatient (CLI) | payer MEDICARE, OTHER ==
--- NOTE | 2020-11-19 10:54 | Ultrasound Report ---
PROCEDURE: Renal arterial duplex examination INDICATIONS: HYPERTENSION TECHNIQUE: Real time scanning was performed of the aorta and bilateral renal arteries. COMPARISON: None FINDINGS: Aortic peak systolic velocity: 67 cm/s. Right: Kidney measures 89 mm in length. Renal vein is patent. Proximal renal artery peak systolic velocity: 142 cm/s, with a renal aortic ratio of 2.1 Mid renal artery peak systolic velocity: 1 or 7 cm/s, renal aortic ratio of 1.6. Distal renal artery peak systolic velocity: 66 cm/s, renal aortic ratio of 1.0 Hilar renal artery: 60 60 m per second, renal aortic ratio 1.0 Superior interlobar renal artery: 34.8 cm/s, monophasic waveforms Mid interlobar renal artery: 26 image per second, monophasic waveforms. Inferior interlobar renal artery: 31 cm/s, monophasic waveforms Left: Kidney measures 96 mm in length. Renal vein is patent. Proximal renal artery peak systolic velocity: 140 cm/s, renal aortic ratio of 2.1 Mid renal artery peak systolic velocity: 93 cm/s, renal aortic ratio 1.4. Distal renal artery peak systolic velocity: 111 cm/s, renal aortic ratio 1.7 Hilar renal artery: 37 cm/s, renal aortic ratio 0.5 Superior interlobar renal artery: 52 cm/s, monophasic waveforms Mid interlobar renal artery: 22 cm/s, monophasic waveforms Inferior interlobar renal artery: 39 cm/s, monophasic waveforms IMPRESSION: No evidence of renal artery stenosis bilaterally. Reviewed by: Jeremi Peralta MD on 11/19/2020 10:53 AM [facility] Approved by: Jeremi Peralta MD on 11/19/2020 10:53 AM PST Station ID: [id number]
== END 2020-11-19 07:14 | disposition home or self-care (01) ==
LOC: DI 07:13
PROVIDERS: ATTEND Physician Assistant
DX: I10 Essential (primary) hypertension (principal)
CPT/HCPCS: 93975

== ENCOUNTER 2020-12-22 09:40 | Outpatient (CLI) | payer MEDICARE, OTHER ==
--- NOTE | 2020-12-22 10:20 | SLEEP CARE CONSULTATION ---
Information from patient questionnaire entered by Marianela Anthony. I have reviewed and concur with the information entered by Marianela Anthony. This document represents the service I personally performed and the decisions made by , Candy Snow ARNP. History of Present Illness Service Date and Time: 12/22/2020 0940 Previous diagnosis: Severe, Obstructive Sleep Apnea-Hypopnea Syndrome AHI: 49.0 (in 2019) Reason for follow up: other (2 month with pressure change) Equipment type: [facility] Mask style: Nasal Backup mask available: Yes (old mask) Last cushion change: 1 month ago Prior sleep studies: Yes Year and Where: 2019 - [facility] Type of Sleep Study: Polysomnography HPI additional information: TYLER LOWRY was diagnosed to have severe, AHI 49.0, obstructive sleep apnea-hypopnea syndrome and returned today for CPAP therapy 2 month pressure change follow-up. CPAP Compliance Data - Data Reviewed with Patient Average duration of nightly device use: 4 hr 1 min Compliance rate %: 48 (60 days) Current pressure setting (cmH2O): 6-12 Humidity settin Average residual AHI: 1.6 Subjective Missed days of use due to: reports: travel (does not take for weekend travel), other (falls asleep without it) Patient concerns: reports: mask discomfort (adjustment of straps help), dry mouth, nose, throat (drinks water as needed, not a problem). denies: aerophagia, air blowing in eyes, mask leak noise, condensation in mask/hose, nasal congestion, epistaxis, other Observed to snore while using device: No Current pressure setting perceived as: comfortable On therapy, patient: reports: sleeping better, awakening more refreshed, being more awake and alert during the day, more rested overall. denies: drowsiness while driving Initial [place] Sleepiness Scale score: 16 (in 2019) Current [place] Sleepiness Scale score: 20 Allergies and Home Medications Drug allergies reviewed: Yes (codiene) Home medication list reviewed: Yes (no new medications) Review of Systems Review of systems same as previous: Yes (no changes) Physical Exam Heart Rate: 69 O2 Saturation: 94 Height: 5 ft 4 in Weight: 143 lb Body Mass Index: 24.5 BMI Classification: Healthy weight Impression and Plan 1. Obstructive Sleep Apnea-Hypopnea Syndrome, severe, with poor treatment compliance and good apnea control. On CPAP therapy, the patient has better sleep quality and is more rested overall. He has not been using the machine when he goes to family on the weekends. I reviewed compliance guidelines for insurance coverage. Patient was counseled on the difference between meeting compliance and optimal use of CPAP. Optimal use of CPAP is use of CPAP with all sleep to obtain maximum benefit of treatment. Patient is encouraged to use CPAP with all sleep. He voiced understanding. He has been having some mouth dryness, but upon review he told me he did not fill the water to the maximum line (just the first) and this is probably the cause because the water will run out during the night. He was encouraged to fill to the maximum line but not over. He voiced understanding. I will have him follow up in 1-2 months to review compliance. Patient's apnea severity and rationale for treatment to reduce apnea, improve sleep quality and reduce cardiovascular and cerebrovascular events was reviewed. I also reviewed the benefit of consistent device use of CPAP for pre-diabetes and gout. * Continue auto CPAP pressure at 6-12 cmH2O * Notify me if snoring with mask or feeling that the pressure is too much or too little * Maintain a healthy weight * Call this office if any problems using CPAP * Return for follow up in 1-2 months, or sooner if concerns arise Counseling Topics: Spare mask, Weight control Visit Type: In Office Time Spent with Patient (minutes): 20 Provider Statement: I spent 100% of the Face to Face Visit with the patient with greater than 50% spent counseling the patient and coordination of care.
== END 2020-12-22 09:41 | disposition home or self-care (01) ==
LOC: SC 09:40
PROVIDERS: ATTEND Nurse Practitioner Family
DX: G47.33 Obstructive sleep apnea (adult) (pediatric) (principal)
CPT/HCPCS: 99213; G0463; 99212

== ENCOUNTER 2021-02-22 09:40 | Outpatient (CLI) | payer MEDICARE, OTHER ==
--- NOTE | 2021-02-22 10:18 | SLEEP CARE CONSULTATION ---
Information from patient questionnaire entered by Marianela Anthony. I have reviewed and concur with the information entered by Marianela Anthony. This document represents the service I personally performed and the decisions made by , Candy Snow ARNP. History of Present Illness Service Date and Time: 02/22/2021 0940 Previous diagnosis: Severe, Obstructive Sleep Apnea-Hypopnea Syndrome AHI: 49.0 (in 2019) Reason for follow up: other (2 month) Equipment type: CPAP Equipment obtained from: [employer] (getting supplies as needed) Mask style: Nasal Backup mask available: Yes (other mask) Last cushion change: 1 year Prior sleep studies: Yes Year and Where: 2019 - [facility] Type of Sleep Study: Polysomnography HPI additional information: TYLER LOWRY was diagnosed to have severe, AHI 49.0, obstructive sleep apnea-hypopnea syndrome and returned today for CPAP therapy 2 month follow-up. CPAP Compliance Data - Data Reviewed with Patient Average duration of nightly device use: 5 hr 30 min Compliance rate %: 70 (60 days) Current pressure setting (cmH2O): 6-12 Humidity settin Average residual AHI: 1.6 Central apnea: 0.2 Obstructive apnea: 0.8 Subjective Missed days of use due to: reports: travel Patient concerns: reports: mask discomfort (just needs to adjust the straps to reduce leaks), mask leak noise. denies: aerophagia, air blowing in eyes, condensation in mask/hose, nasal congestion, dry mouth, nose, throat, epistaxis, other Observed to snore while using device: No Current pressure setting perceived as: comfortable On therapy, patient: reports: sleeping better, awakening more refreshed, being more awake and alert during the day, more rested overall. denies: drowsiness while driving Initial [place] Sleepiness Scale score: 16 (in 2020) Current [place] Sleepiness Scale score: 12 Allergies and Home Medications Home medication list reviewed: Yes (no new meds) Review of Systems Review of systems same as previous: Yes (no changes) Physical Exam Heart Rate: 69 O2 Saturation: 95 Height: 5 ft 4 in Weight: 144 lb Body Mass Index: 24.7 BMI Classification: Healthy weight Impression and Plan 1. Obstructive Sleep Apnea-Hypopnea Syndrome, severe, with good treatment compliance and good apnea control. On CPAP therapy, the patient has better sleep quality and is more rested overall. Patient has been able to bring up his compliance as needed and is now compliant. Patient was counseled on the difference between meeting compliance and optimal use of CPAP. Optimal use of CPAP is use of CPAP with all sleep to obtain maximum benefit of treatment. Patient is encouraged to use CPAP with all sleep. He voiced understanding. He has not change out his mask for some time and is getting some leaks around the mask. He has to tighten the headgear to try to reduce leaking. I encouraged him to change out the mask to get a better seal and less need to tighten headgear. Mask leaks can be reduced by washing mask daily and changing mask cushions more frequently to improve mask seal and comfort. He voiced understanding. Patient's apnea severity and rationale for treatment to reduce apnea, improve sleep quality and reduce cardiovascular and cerebrovascular events was reviewed. I also reviewed the benefit of consistent device use of CPAP for pre-diabetes and gout. * Continue autoCPAP pressure at 6-12 cmH2O * Notify me if snoring with mask or feeling that the pressure is too much or too little * Maintain a healthy weight * Call this office if any problems using CPAP * Return for follow up in 3 months, or sooner if concerns arise Counseling Topics: Spare mask, Weight control Visit Type: In Office Time Spent with Patient (minutes): 14 Provider Statement: I spent 100% of the Face to Face Visit with the patient with greater than 50% spent counseling the patient and coordination of care.
== END 2021-02-22 09:41 | disposition home or self-care (01) ==
LOC: SC 09:40
PROVIDERS: ATTEND Nurse Practitioner Family
DX: G47.33 Obstructive sleep apnea (adult) (pediatric) (principal)
CPT/HCPCS: 99212; G0463

== ENCOUNTER 2021-03-08 08:42 | Outpatient (CLI) | payer MEDICARE, OTHER ==
[2021-03-08 12:23] LABS: BASOPHILS # (AUTO) 0.1 10^3/uL (0.0-0.1); BASOPHILS % (AUTO) 1.7 %; EOSINOPHILS # (AUTO) 0.9 10^3/uL (0.0-0.7); EOSINOPHILS % (AUTO) 17.5 %; HCT - HEMATOCRIT 37.4 % (42.0-52.0); HGB - HEMOGLOBIN 12.1 g/dL (14.0-18.0); LYMPHOCYTES # (AUTO) 1.3 10^3/uL (1.5-3.5); LYMPHOCYTES % (AUTO) 24.4 %; MEAN CORPUSCULAR HEMOGLOBIN 33.8 pg (27.0-31.0); MEAN CORPUSCULAR HGB CONC 32.4 g/dL (32.0-36.0); MEAN CORPUSCULAR VOLUME 104.5 fL (80.0-94.0); MEAN PLATELET VOLUME 10.8 fL (7.4-11.4); MONOCYTES # (AUTO) 0.5 10^3/uL (0.0-1.0); MONOCYTES % (AUTO) 8.7 %; NEUTROPHILS # (AUTO) 2.5 10^3/uL (1.5-6.6); NEUTROPHILS % (AUTO) 47.3 %; PLT - PLATELET COUNT 241 10^3/uL (130-450); RED BLOOD COUNT 3.58 10^6/uL (4.70-6.10); RED CELL DISTRIBUTION WIDTH 13.2 % (12.0-15.0); WHITE BLOOD COUNT 5.2 x10^3/uL (4.8-10.8)
[2021-03-08 12:45] LABS: CREATININE,URINE 56.3 mg/dL; MICROALBUM/CREATININE RATIO,UR 44.4 ug/mg (<30.0); MICROALBUMIN,URINE 2.5 mg/dL (0-300.0)
[2021-03-08 12:46] LABS: ALBUMIN 4.3 g/dL (3.2-5.5); ALBUMIN/GLOBULIN RATIO 1.5 (1.0-2.2); ALKALINE PHOSPHATASE 70 IU/L (42-121); ALT ALANINE AMINOTRANSFERASE 15 IU/L (10-60); AST ASPARTATE AMINOTRANSFERASE 23 IU/L (10-42); BILIRUBIN,TOTAL 0.7 mg/dL (0.2-1.0); BUN - BLOOD UREA NITROGEN 30 mg/dL (6-20); CALCIUM 9.1 mg/dL (8.5-10.3); CARBON DIOXIDE - CO2 24 mmol/L (21-32); CHLORIDE 101 mmol/L (101-111); CHOL/HDL RATIO 2.9 (<5.0); CHOLESTEROL 276 mg/dL; CREATININE 1.8 mg/dL (0.6-1.2); GFR - MDRD 36 (>89); GLUCOSE 106 mg/dL (70-100); HDL CHOLESTEROL 95 mg/dL; LDL CHOLESTEROL,CALCULATED 146 mg/dL; LDL/HDL RATIO 1.5 (<3.6); POTASSIUM 4.4 mmol/L (3.5-5.0); SODIUM 137 mmol/L (135-145); TOTAL PROTEIN 7.2 g/dL (6.7-8.2); TRIGLYCERIDES 174 mg/dL; VLDL CHOLESTEROL 35 mg/dL
[2021-03-08 12:59] LABS: ESTIMATED AVERAGE GLUCOSE 114 mg/dL (70-100); HEMOGLOBIN A1c% 5.6 % (4.27-6.07)
== END 2021-03-08 08:43 | disposition home or self-care (01) ==
LOC: LAB.N 08:42
PROVIDERS: ATTEND Internal Medicine
DX: E11.22 Type 2 diabetes mellitus with diabetic chronic kidney disease (principal); N18.31 Chronic kidney disease, stage 3a
CPT/HCPCS: 36415; 80053; 80061; 82043; 82570; 83036; 83721; 85025

== ENCOUNTER 2021-05-24 09:34 | Outpatient (CLI) | payer MEDICARE, OTHER ==
--- NOTE | 2021-05-24 10:17 | SLEEP CARE CONSULTATION ---
Information from patient questionnaire entered by Marianela Anthony. I have reviewed and concur with the information entered by Marianela Anthony. This document represents the service I personally performed and the decisions made by , Candy Snow ARNP. History of Present Illness Service Date and Time: 05/24/2021 0934 Previous diagnosis: Severe, Obstructive Sleep Apnea-Hypopnea Syndrome AHI: 49.0 (in 2019) Reason for follow up: three month Equipment type: CPAP Equipment obtained from: [employer] (getting supplies as needed) Mask style: Nasal Backup mask available: No (will keep old mask when replaced) Last cushion change: last week Prior sleep studies: Yes Year and Where: 2019 - [facility] Type of Sleep Study: Polysomnography HPI additional information: TYLER LOWRY was diagnosed to have severe, AHI 49.0, obstructive sleep apnea-hypopnea syndrome and returned today for CPAP therapy three month follow- up. CPAP Compliance Data - Data Reviewed with Patient Average duration of nightly device use: 4 hr 48 min Compliance rate %: 53 (90 days) Current pressure setting (cmH2O): 6-12 Humidity settin Average residual AHI: 1.5 Subjective Missed days of use due to: reports: travel Patient concerns: reports: other (snore while using device). denies: aerophagia, mask discomfort, air blowing in eyes, mask leak noise, condensation in mask/hose, nasal congestion, dry mouth, nose, throat, epistaxis Observed to snore while using device: Yes (occasional per his ) Current pressure setting perceived as: comfortable On therapy, patient: reports: sleeping better, awakening more refreshed, being more awake and alert during the day, more rested overall. denies: drowsiness while driving Initial [place] Sleepiness Scale score: 16 (in 2019) Current [place] Sleepiness Scale score: 9 Allergies and Home Medications Home medication list reviewed: Yes (no changes) Review of Systems Review of systems same as previous: Yes (no changes) Physical Exam Heart Rate: 66 O2 Saturation: 99 Height: 5 ft 4 in Weight: 139 lb Body Mass Index: 23.8 BMI Classification: Healthy weight Impression and Plan 1. Obstructive Sleep Apnea-Hypopnea Syndrome, severe, with fair treatment compliance and good apnea control. On CPAP therapy, the patient has better sleep quality and is more rested overall. Patient compliance is down a some but he was compliant at his last visit. I advised him to make sure that he does get 4 hours a night and uses it every night to reach his compliance and he voiced understanding. Compliance guidelines reviewed for insurance coverage. Patient w as counseled on the difference between meeting compliance and optimal use of CPAP. Optimal use of CPAP is use of CPAP with all sleep to obtain maximum benefit of treatment. Patient is encouraged to use CPAP with all sleep. Patient's apnea severity and rationale for treatment to reduce apnea, improve sleep quality and reduce cardiovascular and cerebrovascular events was reviewed. I also reviewed the benefit of consistent device use of CPAP for pre-diabetes and gout. * Continue auto CPAP pressure at 6-12 cmH2O * Notify me if snoring with mask or feeling that the pressure is too much or too little * Maintain a healthy weight * Call this office if any problems using CPAP * Return for follow up in 6 months, or sooner if concerns arise Counseling Topics: Spare mask, Weight control Visit Type: In Office Time Spent with Patient (minutes): 12 Provider Statement: I spent 100% of the Face to Face Visit with the patient with greater than 50% spent counseling the patient and coordination of care.
== END 2021-05-24 09:35 | disposition home or self-care (01) ==
LOC: SC 09:34
PROVIDERS: ATTEND Nurse Practitioner Family
DX: G47.33 Obstructive sleep apnea (adult) (pediatric) (principal)
CPT/HCPCS: 99212; G0463

== ENCOUNTER 2021-06-13 08:00 | Outpatient (CLI) | payer MEDICARE, OTHER | END 2021-06-13 23:59 | disposition home or self-care (01) | LOC: LAB.WCP 08:00 | PROVIDERS: ATTEND Family Medicine | DX: L08.9 Local infection of the skin and subcutaneous tissue, unspecified (principal) | CPT/HCPCS: 87070; 87181; 87205 ==

== ENCOUNTER 2021-11-18 08:22 | Outpatient (CLI) | payer MEDICARE ==
[2021-11-18 11:59] LABS: BASOPHILS # (AUTO) 0.1 10^3/uL (0.0-0.1); BASOPHILS % (AUTO) 1.2 %; EOSINOPHILS # (AUTO) 1.3 10^3/uL (0.0-0.7); EOSINOPHILS % (AUTO) 19.5 %; HCT - HEMATOCRIT 38.1 % (42.0-52.0); HGB - HEMOGLOBIN 12.1 g/dL (14.0-18.0); LYMPHOCYTES # (AUTO) 1.7 10^3/uL (1.5-3.5); LYMPHOCYTES % (AUTO) 24.6 %; MEAN CORPUSCULAR HEMOGLOBIN 32.4 pg (27.0-31.0); MEAN CORPUSCULAR HGB CONC 31.8 g/dL (32.0-36.0); MEAN CORPUSCULAR VOLUME 101.9 fL (80.0-94.0); MEAN PLATELET VOLUME 11.3 fL (7.4-11.4); MONOCYTES # (AUTO) 0.5 10^3/uL (0.0-1.0); MONOCYTES % (AUTO) 7.3 %; NEUTROPHILS # (AUTO) 3.3 10^3/uL (1.5-6.6); NEUTROPHILS % (AUTO) 47.3 %; PLT - PLATELET COUNT 199 10^3/uL (130-450); RED BLOOD COUNT 3.74 10^6/uL (4.70-6.10); RED CELL DISTRIBUTION WIDTH 14.5 % (12.0-15.0); WHITE BLOOD COUNT 6.9 x10^3/uL (4.8-10.8)
[2021-11-18 12:16] LABS: SLIDE REVIEW? Indicated
[2021-11-18 12:35] LABS: THYROID STIMULATING HORMONE 1.19 uIU/mL (0.34-5.60)
[2021-11-18 12:37] LABS: CREATININE,URINE 94.4 mg/dL
[2021-11-18 12:38] LABS: ALBUMIN 4.2 g/dL (3.2-5.5); ALBUMIN/GLOBULIN RATIO 1.3 (1.0-2.2); ALKALINE PHOSPHATASE 74 IU/L (42-121); ALT ALANINE AMINOTRANSFERASE 13 IU/L (10-60); AST ASPARTATE AMINOTRANSFERASE 24 IU/L (10-42); BUN - BLOOD UREA NITROGEN 20 mg/dL (6-20); CALCIUM 9.4 mg/dL (8.5-10.3); CARBON DIOXIDE - CO2 26 mmol/L (21-32); CHLORIDE 101 mmol/L (101-111); CHOLESTEROL 233 mg/dL; CREATININE 1.4 mg/dL (0.6-1.2); GFR - MDRD 48 (>89); GLUCOSE 116 mg/dL (70-100); HDL CHOLESTEROL 118 mg/dL; LDL CHOLESTEROL,CALCULATED 87 mg/dL; LDL/HDL RATIO 0.7 (<3.6); POTASSIUM 4.6 mmol/L (3.5-5.0); SODIUM 136 mmol/L (135-145); TOTAL PROTEIN 7.4 g/dL (6.7-8.2); TRIGLYCERIDES 141 mg/dL; URIC ACID 8.6 mg/dL (2.6-7.2); VLDL CHOLESTEROL 28 mg/dL
[2021-11-18 12:48] LABS: ESTIMATED AVERAGE GLUCOSE 128 mg/dL (70-100); HEMOGLOBIN A1c% 6.1 % (4.27-6.07)
[2021-11-18 13:10] LABS: RBC MORPHOLOGY (MULTIPLE) NORMAL APPEARANCE (NORMAL)
[2021-11-18 13:11] LABS: PLATELET ESTIMATE, MANUAL NORMAL (130-450,000) (NORMAL); PLATELET MORPHOLOGY NORMAL APPEARANCE (NORMAL)
== END 2021-11-18 08:23 | disposition home or self-care (01) ==
LOC: LAB.N 08:22
PROVIDERS: ATTEND Internal Medicine
DX: I10 Essential (primary) hypertension (principal); C61 Malignant neoplasm of prostate; E11.29 Type 2 diabetes mellitus with other diabetic kidney complication; M10.9 Gout, unspecified
CPT/HCPCS: 36415; 80053; 80061; 82043; 82570; 83036; 83721; 84153; 84443; 84550; 85025

== ENCOUNTER 2021-12-08 16:15 | Outpatient (CLI) | payer MEDICARE ==
[2021-12-08 16:37] VITALS: BP 142/83
--- NOTE | 2021-12-08 16:37 | SLEEP CARE CONSULTATION ---
Information from patient questionnaire entered by Bryan Betancourt MA. I have reviewed and concur with the information entered by Bryan Betancourt MA. This document represents the service I personally performed and the decisions made by , Candy Snow ARNP. History of Present Illness Service Date and Time: 12/08/2021 1615 Previous diagnosis: Severe, Obstructive Sleep Apnea-Hypopnea Syndrome AHI: 49.0 (in 2019) Reason for follow up: six month Equipment type: CPAP Equipment obtained from: [employer] (getting supplies as needed) Mask style: Nasal Backup mask available: Yes (old mask) Last cushion change: 1 month Prior sleep studies: Yes Year and Where: 2019 - [facility] Type of Sleep Study: Polysomnography HPI additional information: TYLER LOWRY was diagnosed to have severe, AHI 49.0, obstructive sleep apnea-hypopnea syndrome and returned today for CPAP therapy six month follow-up. Sleep Study - Results Type of Sleep Study: Polysomnography Prior sleep studies: Yes Year and Where: 2019 - [facility] CPAP Compliance Data - Data Reviewed with Patient Average duration of nightly device use: 4 hours 16 minutes Compliance rate %: 50 (last 30 days ) Current pressure setting (cmH2O): 6-12 Average residual AHI: 0.7 Central apnea: .1 Obstructive apnea: .3 Average large leak: 26.2 Subjective Missed days of use due to: reports: other (arthritis pain) Patient concerns: denies: aerophagia, mask discomfort, air blowing in eyes, mask leak noise, condensation in mask/hose, nasal congestion, dry mouth, nose, throat, epistaxis, other Observed to snore while using device: No Current pressure setting perceived as: comfortable On therapy, patient: reports: sleeping better, awakening more refreshed, being more awake and alert during the day, more rested overall. denies: drowsiness while driving Initial [place] Sleepiness Scale score: 16 (in 2019) Current [place] Sleepiness Scale score: 9 Allergies and Home Medications Home medication list reviewed: Yes (no changes) Review of Systems Review of systems same as previous: Yes (no changes) Physical Exam Vital signs obtained and entered by: BISHOP CARMEN Blood Pressure: 142/83 (RIGHT, PULSE 86, REF 18,) Cuff size: wrist Heart Rate: 82 O2 Saturation: 100 Height: 5 ft 4 in Weight: 140 lb Body Mass Index: 24.0 BMI Classification: Healthy weight Impression and Plan 1. Obstructive Sleep Apnea-Hypopnea Syndrome, severe, with fair treatment compliance and excellent apnea control. On CPAP therapy, the patient has better sleep quality and is more rested overall. Patient is satisfied with CPAP therapy and has significant improvement of his sleep apnea. His compliance has come down some and I encouraged him to increase his compliance by wearing it every night for at least 4 hours and to wear it with any naps. He voiced understanding. Compliance guidelines reviewed for insurance coverage. Patient was counseled on the difference between meeting compliance and optimal use of CPAP. Optimal use of CPAP is use of CPAP with all sleep to obtain maximum benefit of treatment. Patient is encouraged to use CPAP with all sleep. Patient's apnea severity and rationale for treatment to reduce apnea, improve sleep quality and reduce cardiovascular and cerebrovascular events was reviewed. I also reviewed the benefit of consistent device use of CPAP for pre-diabetes and gout. Patient is at a healthy weight. * Continue auto CPAP pressure at 6-12 cmH2O * Notify me if snoring with mask or feeling that the pressure is too much or too little * Maintain a healthy weight * Call this office if any problems using CPAP * Return for follow up in 1 year, or sooner if concerns arise Counseling Topics: Spare mask, Weight control Visit Type: In Office Time Spent with Patient (minutes): 15 Provider Statement: I spent 100% of the Face to Face Visit with the patient with greater than 50% spent counseling the patient and coordination of care.
== END 2021-12-08 16:16 | disposition home or self-care (01) ==
LOC: SC 16:15
PROVIDERS: ATTEND Nurse Practitioner Family
DX: G47.33 Obstructive sleep apnea (adult) (pediatric) (principal)
CPT/HCPCS: 99212; G0463

== ENCOUNTER 2022-04-14 07:48 | Outpatient (CLI) | payer MEDICARE ==
[2022-04-14 12:28] LABS: BASOPHILS # (AUTO) 0.1 10^3/uL (0.0-0.1); BASOPHILS % (AUTO) 1.5 %; EOSINOPHILS # (AUTO) 1.2 10^3/uL (0.0-0.7); EOSINOPHILS % (AUTO) 17.8 %; HCT - HEMATOCRIT 38.7 % (42.0-52.0); HGB - HEMOGLOBIN 12.4 g/dL (14.0-18.0); LYMPHOCYTES # (AUTO) 1.5 10^3/uL (1.5-3.5); LYMPHOCYTES % (AUTO) 23.3 %; MEAN CORPUSCULAR HEMOGLOBIN 33.6 pg (27.0-31.0); MEAN CORPUSCULAR VOLUME 104.9 fL (80.0-94.0); MEAN PLATELET VOLUME 11.2 fL (7.4-11.4); MONOCYTES # (AUTO) 0.6 10^3/uL (0.0-1.0); MONOCYTES % (AUTO) 8.8 %; NEUTROPHILS # (AUTO) 3.2 10^3/uL (1.5-6.6); PLT - PLATELET COUNT 227 10^3/uL (130-450); RED BLOOD COUNT 3.69 10^6/uL (4.70-6.10); WHITE BLOOD COUNT 6.6 x10^3/uL (4.8-10.8)
[2022-04-14 12:46] LABS: ALBUMIN/GLOBULIN RATIO 1.5 (1.0-2.2); ALKALINE PHOSPHATASE 71 IU/L (42-121); ALT ALANINE AMINOTRANSFERASE 12 IU/L (10-60); AST ASPARTATE AMINOTRANSFERASE 19 IU/L (10-42); BILIRUBIN,TOTAL 0.3 mg/dL (0.2-1.0); BUN - BLOOD UREA NITROGEN 39 mg/dL (6-20); CARBON DIOXIDE - CO2 26 mmol/L (21-32); CHLORIDE 104 mmol/L (101-111); CHOL/HDL RATIO 2.5 (<5.0); CHOLESTEROL 216 mg/dL; CREATININE 1.8 mg/dL (0.6-1.2); GFR - MDRD 36 (>89); GLUCOSE 126 mg/dL (70-100); HDL CHOLESTEROL 88 mg/dL; LDL CHOLESTEROL,CALCULATED 96 mg/dL; LDL/HDL RATIO 1.1 (<3.6); POTASSIUM 4.4 mmol/L (3.5-5.0); SODIUM 138 mmol/L (135-145); TOTAL PROTEIN 6.7 g/dL (6.7-8.2); TRIGLYCERIDES 162 mg/dL; VLDL CHOLESTEROL 32 mg/dL
[2022-04-14 13:11] LABS: CREATININE,URINE 52.4 mg/dL; MICROALBUM/CREATININE RATIO,UR 536.3 ug/mg (<30.0); MICROALBUMIN,URINE 28.1 mg/dL (0-300.0)
[2022-04-14 14:50] LABS: DIFFERENTIAL COMMENT MANUAL=AUTO DIFF
[2022-04-14 18:52] LABS: ESTIMATED AVERAGE GLUCOSE 128 mg/dL (70-100); HEMOGLOBIN A1c% 6.1 % (4.27-6.07)
== END 2022-04-14 07:49 | disposition home or self-care (01) ==
LOC: LAB.N 07:48
PROVIDERS: ATTEND Internal Medicine
DX: E11.29 Type 2 diabetes mellitus with other diabetic kidney complication (principal); E78.5 Hyperlipidemia, unspecified; I10 Essential (primary) hypertension
CPT/HCPCS: 36415; 80053; 80061; 82043; 82570; 83036; 83721; 85025

== ENCOUNTER 2022-12-20 08:09 | Outpatient (CLI) | payer MEDICARE ==
[2022-12-20 09:02] VITALS: BP 142/78
--- NOTE | 2022-12-20 09:02 | SLEEP CARE CONSULTATION ---
Information from patient questionnaire entered by Behzad Benito. I have reviewed and concur with the information entered by Behzad Benito. This document represents the service I personally performed and the decisions made by me, Candy Snow ARNP. History of Present Illness Service Date and Time: 12/20/2022 0809 Previous diagnosis: Severe, Obstructive Sleep Apnea-Hypopnea Syndrome AHI: 49.0 (in 2019) Reason for follow up: annual (LAST SEEN 12/06) Equipment type: CPAP (RESMED Airsense 10, s/u 06/2020) Equipment obtained from: [employer] (getting supplies as needed) Mask style: Nasal Mask brand: Resmed (Airfit [id number]) Backup mask available: No (will keep old mask when replaced) Last cushion change: 2 years Prior sleep studies: Yes Year and [facility]: 2019 [facility] Type of Sleep Study: Polysomnography HPI additional information: TYLER LOWRY was diagnosed to have severe, AHI 49.0, obstructive sleep apnea-hypopnea syndrome and returned today for CPAP therapy annual follow-up. Sleep Study - Results Type of Sleep Study: Polysomnography Prior sleep studies: Yes Year and Where: 2019 [facility] Compliance Data - Data Reviewed with Patient Average duration of nightly device use: 5 hours 11 minutes Compliance rate %: 56 (144/180 days used) Current pressure setting (cmH2O): 6-12 Average residual AHI: 1.6 Central apnea: 0.3 Obstructive apnea: 0.5 Subjective Missed days of use due to: reports: travel Patient concerns: reports: mask discomfort (adjustment helps), dry mouth, nose, throat (occasional). denies: aerophagia, air blowing in eyes, mask leak noise, condensation in mask/hose (condensation in water chamber), nasal congestion, epistaxis Observed to snore while using device: No Current pressure setting perceived as: comfortable On therapy, patient: reports: sleeping better, awakening more refreshed, being more awake and alert during the day, more rested overall. denies: drowsiness while driving Initial [place] Sleepiness Scale score: 16 (in 2019) Current [place] Sleepiness Scale score: 15 (12/20/22) Allergies and Home Medications Known drug allergies: No Drug allergies reviewed: Yes Home medication list reviewed: Yes (no changes) Review of Systems Review of systems same as previous: Yes (no changes) Physical Exam Vital signs obtained and entered by: BEHZAD Henson MA Blood Pressure: 142/78 (LEFT ARM) Cuff size: regular Heart Rate: 67 O2 Saturation: 98 Height: 5 ft 4 in Weight: 141 lb 9.6 oz Body Mass Index: 24.3 BMI Classification: Normal Impression and Plan 1. Obstructive Sleep Apnea-Hypopnea Syndrome, severe, with fair treatment compliance and good apnea control. On CPAP therapy, the patient has better sleep quality and is more rested overall. He travels a lot to see family and cannot use the CPAP in the car. Compliance guidelines reviewed for insurance coverage. Optimal use of CPAP is use of CPAP with all sleep to obtain maximum benefit of treatment. Patient is encouraged to use CPAP with all sleep. Patient has significant improvement of their sleep apnea and is satisfied with current CPAP therapy. Patient denies significant problems with oral dryness, nasal congestion, epistaxis, skin irritation or aerophagia. Patient's apnea severity and rationale for treatment to reduce apnea, improve sleep quality and reduce cardiovascular and cerebrovascular events was reviewed. I also reviewed the benefit of consistent device use of CPAP for pre-diabetes and gout. * Continue auto CPAP pressure at 6-12 cmH2O * Update supplies * Notify me if snoring with mask or feeling that the pressure is too much or too little * Attempt to lose weight * Call this office if any problems using CPAP * Return for follow up in 1 year, or sooner if concerns arise Counseling Topics: Spare mask Visit Type: In Office Time Spent with Patient (minutes): 21 Provider Statement: I spent 100% of the Face to Face Visit with the patient with greater than 50% spent counseling the patient and coordination of care.
== END 2022-12-20 08:10 | disposition home or self-care (01) ==
LOC: SC 08:09
PROVIDERS: ATTEND Nurse Practitioner Family
DX: G47.33 Obstructive sleep apnea (adult) (pediatric) (principal)
CPT/HCPCS: 99213; G0463; 99212

== ENCOUNTER 2023-05-23 08:00 | Outpatient (CLI) | payer MEDICARE | END 2023-05-23 23:59 | disposition home or self-care (01) | LOC: LAB.N 08:00 | PROVIDERS: ATTEND Family Medicine | DX: U07.1 COVID-19 (principal) ==

== ENCOUNTER 2023-06-15 11:04 | Outpatient (CLI) | payer MEDICARE | END 2023-06-15 23:59 | disposition critical access hospital (66) | LOC: EMS 11:04 | DX: R46.4 Slowness and poor responsiveness (principal); R26.81 Unsteadiness on feet; W18.30XA Fall on same level, unspecified, initial encounter; Y93.89 Activity, other specified; Y92.832 Beach as the place of occurrence of the external cause | CPT/HCPCS: A0425; A0429 ==

== ENCOUNTER 2023-06-15 11:19 | Emergency (ER) | payer MEDICARE ==
--- NOTE | 2023-06-15 11:49 | ED Physician Documentation ---
PD HPI HEAD INJURY - Stated complaint Stated Complaint: FALL/HEAD INJ - Chief complaint Chief Complaint: General - History obtained from History obtained from: Patient - History of Present Illness Mechanism of head injury: Fell Where head injury occurred: Other (beach[place]shoreline) Timing - onset: Today (he was fishing for salmon and slipped and fell, striking back of head on rock. Apparently dazed for minute or so but he does not believe he had LOC. Bystanders called EMS. Pt up on his own with scalp contusion. He says Medics talked him into coming to the ED.) Location of injury: Back Quality of pain: Throbbing, Aching Associated symptoms: AMS (dazed for minute or so, per patient.). No: LOC Symptoms worsen with: Palpation. No: Movement Contributing factors: No: Anticoagulated, Intoxicated (he says he had had 2 beers while fishing. He does not seem inebriated clinically on arrival here.) Review of Systems Musculoskeletal: denies: Neck pain, Back pain Neurologic: reports: Headache, Head injury. denies: Focal weakness, Numbness, Near syncope, Confused, LOC PD PAST MEDICAL HISTORY - Past Medical History Cardiovascular: Hypertension, High cholesterol Respiratory: None Neuro: None Endocrine/Autoimmune: None - Present Medications Home Medications: Ambulatory Orders Medication Instructions Recorded Confirmed Aspirin [Aspirin EC] See Rx Instructions .ROUTE .COMPLEX 12/20/22 12/20/22 Diclofenac Sodium [Jevon] See Rx Instructions .ROUTE .COMPLEX 12/20/22 12/20/22 Ferrous Bis-Glycinate Chelate See Rx Instructions .ROUTE .COMPLEX 12/20/22 12/20/22 [Iron Bisglycinate] Ibuprofen [Advil] See Rx Instructions .ROUTE .COMPLEX 12/20/22 12/20/22 Losartan [Cozaar] See Rx Instructions .ROUTE .COMPLEX 12/20/22 06/15/23 Menthol [Biofreeze] See Rx Instructions .ROUTE .COMPLEX 12/20/22 12/20/22 Metoprolol Succinate [Toprol Xl] See Rx Instructions .ROUTE .COMPLEX 12/20/22 06/15/23 Rosuvastatin Calcium [Crestor] See Rx Instructions .ROUTE .COMPLEX 12/20/22 06/15/23 Tetrahydrozoline HCl [Eye Drops] See Rx Instructions .ROUTE .COMPLEX 12/20/22 allopurinoL [Allopurinol] See Rx Instructions .ROUTE .COMPLEX 12/20/22 06/15/23 - Allergies Allergies/Adverse Reactions: Allergies Allergy/AdvReac Type Severity Reaction Status Date / Time No Known Drug Allergies Allergy Verified 12/20/22 08:41 PD ED PE NORMAL - Vitals Vital signs reviewed: Yes - General General: Alert and oriented X 3, No acute distress, Well developed/nourished - HEENT HEENT: Other (occiput with focal swelling and tednerness. Neck not tender with good ROM. ) - Neck Neck: Supple, no meningeal sign, No bony TTP - Cardiac Cardiac: RRR, No murmur - Respiratory Respiratory: Clear bilaterally - Abdomen Abdomen: Soft, Non tender - Derm Derm: Normal color, Warm and dry - Neuro Neuro: Alert and oriented X 3, recreation engineer 2-12 intact, No motor deficit, No sensory deficit, Normal speech Eye Opening: Spontaneous Motor: Obeys Commands Verbal: Oriented GCS Score: 15 Results - Vitals Vitals: Oxygen O2 Source Room air - Rads (name of study) head CT Relevant Findings:: Prelim report reviewed, EMP independent interpretation of test (no ICH nor acute findings. ) PD Medical Decision Making - ED course Complexity details: reviewed results (head CT without acute findings. He was in ER prlonged time due to CT delay, busy department. Clinically alert and without problems while here. ), considered differential (fell and struck back of head. Dazed but not other concussive symptoms. However he would be appropriate for imaging based on age (NEXUS 2 criteria).), d/w patient Departure - Departure Disposition: 01 Home, Self Care Clinical Impression: Fall from slip, trip, or stumble, Scalp hematoma Condition: Stable Record reviewed to determine appropriate education?: Yes Instructions: ED Hematoma Comments: Your CT scan does not show any fractures nor acute bleeding inside the cranium. There is the local swelling/hematoma on the scalp on the outside that you can feel anyway. You will likely be sore with some headache and certainly the scalp tenderness for the next several days. Tylenol every 4-6 hours if needed for pains. You can do some ice to the scalp as well to help reduce the swelling. Activity as tolerated. No limitation per se. Your CT scan did show some chronic changes that look like small old strokes but again nothing acutely. Forms: PCP List Discharge Date/Time: 06/15/23 14:06
[2023-06-15 12:39] VITALS: O2SAT 100
--- NOTE | 2023-06-15 13:46 | CT Report ---
PROCEDURE: HEAD WO INDICATIONS: fall struck back of head; no LOC TECHNIQUE: Noncontrast 4.5 mm thick angled axial sections acquired from the foramen magnum to the vertex. For r adiation dose reduction, the following was used: automated exposure control, adjustment of mA and/or kV according to patient size. COMPARISON: None. FINDINGS: Image quality: Excellent. CSF spaces: Basal cisterns are patent. No extra-axial fluid collections. Ventricles are normal in size and shape. Brain: No midline shift. No intracranial masses or hemorrhage. Chondromalacia seen in the right fro ntal region and right posterior temporal lobe. There is generalized cerebellar parenchymal volume los s with resulting ventricular and sulcal prominence. Hypodensities in the subcortical and periventricu lar white matter most likely related to chronic microvascular ischemic changes. Skull and face: Mild posterior scalp edema. Calvarium and visualized facial bones are intact, without suspicious lesions. Sinuses: Visualized sinuses and mastoids are clear. IMPRESSION: 1.Mild posterior scalp edema. No skull fracture. No acute cranial abnormality. 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 3.Chronic microvascular ischemic changes and generalized parenchymal volume loss. Reviewed by: Jeff Linn MD on 06/15/2023 1:45 PM PDT Approved by: Jeff Linn MD on 06/15/2023 1:45 PM PDT Station ID: [id number]
[2023-06-15 14:16] VITALS: BP 174/96
== END 2023-06-15 14:06 | disposition home or self-care (01) ==
LOC: EDUNIT# → ED 11:19
DX: S00.03XA Contusion of scalp, initial encounter (principal); W01.198A Fall on same level from slipping, tripping and stumbling with subsequent striking against other object, initial encounter; Y93.89 Activity, other specified; Y92.832 Beach as the place of occurrence of the external cause; I10 Essential (primary) hypertension; E78.00 Pure hypercholesterolemia, unspecified; Z79.82 Long term (current) use of aspirin; Z79.899 Other long term (current) drug therapy
CPT/HCPCS: 99283; 99284

== ENCOUNTER 2023-08-03 11:31 | Outpatient (CLI) | payer MEDICARE, OTHER ==
--- NOTE | 2023-08-03 13:23 | XRAY Report ---
PROCEDURE: Hips 2V BILAT INDICATIONS: BACK PAIN,ACUTE TECHNIQUE: An AP view of the pelvis and a frog-leg lateral view of the left hip were acquired. COMPARISON: None. FINDINGS: Bones: No fractures or dislocations. No suspicious bony lesions. Mild bilateral hip degenerative change. Soft tissues: No suspicious soft tissue calcifications or masses. Prostate implant seeds. Extensiv e vascular calcifications. IMPRESSION: No acute bony abnormality. Mild bilateral hip degenerative change. Peripheral vascular disease. Reviewed by: Kory Faith MD on 08/03/2023 1:22 PM PDT Approved by: Kory Faith MD on 08/03/2023 1:22 PM PDT Station ID: [id number]
--- NOTE | 2023-08-03 13:24 | XRAY Report ---
PROCEDURE: Lumbar Spine 2 View INDICATIONS: BACK PAIN,ACUTE TECHNIQUE: 3 views of the lumbar spine were acquired. COMPARISON: None. FINDINGS: Bones: 5 [id number] vertebrae are present. Trace anterolisthesis of L5 on S1. Multilevel degene rative disc space loss. Multilevel posterior facet arthropathy. No vertebral body compression fractur es. No suspicious bony lesions. Soft tissues: Overlying bowel gas pattern is normal. No suspicious soft tissue calcifications. Pro state implant seeds. Aortoiliac atherosclerotic calcifications. IMPRESSION: Degenerative change. No acute bony abnormality. Reviewed by: Kory Faith MD on 08/03/2023 1:23 PM PDT Approved by: Kory Faith MD on 08/03/2023 1:23 PM PDT Station ID: [id number]
== END 2023-08-03 11:32 | disposition home or self-care (01) ==
LOC: DI 11:31
PROVIDERS: ATTEND Internal Medicine
DX: M47.816 Spondylosis without myelopathy or radiculopathy, lumbar region (principal); M16.0 Bilateral primary osteoarthritis of hip; I73.9 Peripheral vascular disease, unspecified

== ENCOUNTER 2023-11-21 09:07 | Outpatient (CLI) | payer MEDICARE, OTHER ==
[2023-11-21 12:15] LABS: BASOPHILS # (AUTO) 0.1 10^3/uL (0.0-0.1); BASOPHILS % (AUTO) 1.1 %; EOSINOPHILS # (AUTO) 0.5 10^3/uL (0.0-0.7); EOSINOPHILS % (AUTO) 8.3 %; HCT - HEMATOCRIT 36.1 % (42.0-52.0); HGB - HEMOGLOBIN 11.6 g/dL (14.0-18.0); LYMPHOCYTES # (AUTO) 1.8 10^3/uL (1.5-3.5); LYMPHOCYTES % (AUTO) 28.4 %; MEAN CORPUSCULAR HGB CONC 32.1 g/dL (32.0-36.0); MEAN CORPUSCULAR VOLUME 105.9 fL (80.0-94.0); MEAN PLATELET VOLUME 11.3 fL (7.4-11.4); MONOCYTES # (AUTO) 0.4 10^3/uL (0.0-1.0); MONOCYTES % (AUTO) 6.5 %; NEUTROPHILS # (AUTO) 3.4 10^3/uL (1.5-6.6); NEUTROPHILS % (AUTO) 55.2 %; PLT - PLATELET COUNT 176 10^3/uL (130-450); RED BLOOD COUNT 3.41 10^6/uL (4.70-6.10); RED CELL DISTRIBUTION WIDTH 13.4 % (12.0-15.0); WHITE BLOOD COUNT 6.2 x10^3/uL (4.8-10.8)
[2023-11-21 12:31] LABS: ALBUMIN 3.9 g/dL (3.2-5.5); ALBUMIN/GLOBULIN RATIO 1.4 (1.0-2.2); ALKALINE PHOSPHATASE 68 IU/L (42-121); ALT ALANINE AMINOTRANSFERASE 13 IU/L (10-60); AST ASPARTATE AMINOTRANSFERASE 23 IU/L (10-42); BILIRUBIN,TOTAL 0.6 mg/dL (0.2-1.0); BUN - BLOOD UREA NITROGEN 24 mg/dL (6-20); CARBON DIOXIDE - CO2 24 mmol/L (21-32); CHLORIDE 105 mmol/L (101-111); CHOL/HDL RATIO 1.9 (<5.0); CHOLESTEROL 174 mg/dL; CREATININE 1.9 mg/dL (0.6-1.3); GFR - MDRD 34 (>89); GLUCOSE 120 mg/dL (74-104); HDL CHOLESTEROL 93 mg/dL; LDL CHOLESTEROL,CALCULATED 54 mg/dL; LDL/HDL RATIO 0.6 (<3.6); POTASSIUM 4.3 mmol/L (3.5-4.5); SODIUM 136 mmol/L (135-145); TOTAL PROTEIN 6.6 g/dL (6.4-8.9); TRIGLYCERIDES 136 mg/dL (48-352); VLDL CHOLESTEROL 27 mg/dL
[2023-11-21 12:40] LABS: CREATININE,URINE 132.6 mg/dL; MICROALBUM/CREATININE RATIO,UR 125.2 ug/mg (<30.0); MICROALBUMIN,URINE 16.6 mg/dL
[2023-11-21 12:51] LABS: ESTIMATED AVERAGE GLUCOSE 123 mg/dL (70-100); HEMOGLOBIN A1c% 5.9 % (4.27-6.07)
== END 2023-11-21 09:08 | disposition home or self-care (01) ==
LOC: LAB.N 09:07
PROVIDERS: ATTEND Internal Medicine
DX: E11.22 Type 2 diabetes mellitus with diabetic chronic kidney disease (principal); N18.31 Chronic kidney disease, stage 3a; E78.5 Hyperlipidemia, unspecified; M10.9 Gout, unspecified
CPT/HCPCS: 36415; 80053; 80061; 82043; 82570; 83036; 83721; 84550; 85025

== ENCOUNTER 2024-04-09 08:12 | Outpatient (CLI) | payer MEDICARE, OTHER ==
[2024-04-09 12:11] LABS: CREATININE 1.8 mg/dL (0.6-1.3); ESTIMATED AVERAGE GLUCOSE 123 mg/dL (70-100); HEMOGLOBIN A1c% 5.9 % (4.27-6.07); POTASSIUM 4.4 mmol/L (3.5-4.5)
== END 2024-04-09 08:13 | disposition home or self-care (01) ==
LOC: LAB.N 08:12
PROVIDERS: ATTEND Internal Medicine
DX: E11.22 Type 2 diabetes mellitus with diabetic chronic kidney disease (principal); N18.9 Chronic kidney disease, unspecified
CPT/HCPCS: 36415; 80048; 83036